=== PATIENT | male | born 1975 | race Two or more races ===

== ENCOUNTER 2017-04-22 15:32 | Emergency (ER) | payer OTHER ==
[~2017-04-22] VITALS: Ht 167.6 cm; Wt 89.8 kg
[2017-04-22] MEDS ORDERED: NKM (15:57)
[2017-04-22] MEDS ORDERED: Acetaminophen 500mg (ES) tab ORAL ONE (16:15)
--- NOTE | 2017-04-22 16:20 | Emergency Room Report ---
History of Present Illness General Chief Complaint: Head, Face, Neck Trauma Source: Patient Present Illness HPI 41-year-old male presents to the emergency department complaining of 7/10 pain, tenderness, swelling and open wound to side of his nose, left eye and right side of his forehead. Patient states he was at work when a large metal tool fell and hit him in the face. Patient denies pain with movements of the left eye he denies visual changes, loss of vision, nosebleed, loss of consciousness. he denies taking blood thinning medications . Patient reports some nausea that is starting to resolve. Denies vomiting . Patient states he has had a tetanus within the last 5 years. Denies numbness tingling or loss of sensation or gross motor movements of the extremities, incontinence of bowel or bladder. Denies CP, Palpitations, AMS, dizziness, Changes in Vision, Sensation, paresthesias, or a sudden severe headache. Allergies: Coded Allergies: No Known Allergies (Unverified , 04/22/17) Patient History Past Medical History: see triage record Past Surgical History: none Pertinent Family History: none Immunizations: UTD Reviewed Nursing Documentation: PMH: Agreed, PSxH: Agreed Nursing Documentation-PMH Past Medical History: No Stated History Review of Systems All Other Systems: negative except mentioned in HPI Physical Exam Vital Signs Date Time Temp Pulse Resp B/P (MAP) Pulse Ox O2 Delivery O2 Flow Rate FiO2 04/22/17 15:52 98.1 70 17 123/76 98 Room Air Sp02 EP Interpretation: reviewed, normal General Appearance: no apparent distress, alert, GCS 15, non-toxic Head: normocephalic, other - echymosis and erythema to the right side of the forehead, the lower cecily-orbital area of the left eye, and the nasal bridge. 0.3cm avulsion laceration noted to the nasal bridge on the left side, not bleeding at this time. Eyes: bilateral eye normal inspection, bilateral eye PERRL, bilateral eye EOMI ENT: hearing grossly normal, normal voice, TMs + canals normal, other - no evidence of nosebleed or septal hematoma superficial abrasion to the left lower lip, not bleeding, no bruising. Neck: full range of motion, no bony tend, supple/symm/no masses Respiratory: lungs clear, normal breath sounds, speaking full sentences Cardiovascular #1: regular rate, rhythm Musculoskeletal: back normal, gait/station normal, normal range of motion, tender - TTP to the right side of the forehead, the nasal bridge and the left cheekbone Neurologic: alert, oriented x3, responsive, motor strength/tone normal, sensory intact, cerebellar normal, normal gait, speech normal Skin: no rash, warm/dry, well hydrated, other - echymosis and erythema to the right side of the forehead, the lower cecily-orbital area of the left eye, and the nasal bridge. 0.3cm avulsion laceration noted to the nasal bridge on the left side, not bleeding at this time. Medical Decision Making PA Attestation Dr. Matos is my supervising Physician whom patient management has been discussed with. Diagnostic Impression: Primary Impression: Facial contusion Qualified Codes: S00.83XA - Contusion of other part of head, initial encounter Additional Impression: Laceration of nose Qualified Codes: S01.21XA - Laceration without foreign body of nose, initial encounter ER Course 41-year-old male presents to the emergency department complaining of 7/10 pain, tenderness, swelling and open wound to side of his nose, left eye and right side of his forehead. Patient states he was at work when a large metal tool fell and hit him in the face. Patient denies pain with movements of the left eye he denies visual changes, loss of vision, nosebleed, loss of consciousness. he denies taking blood thinning medications . Patient reports some nausea that is starting to resolve. Denies vomiting . Patient states he has had a tetanus within the last 5 years. Denies numbness tingling or loss of sensation or gross motor movements of the extremities, incontinence of bowel or bladder. Denies CP, Palpitations, AMS, dizziness, Changes in Vision, Sensation, paresthesias, or a sudden severe headache. Ddx considered but are not limited to Fracture, dislocation, contusion, concussion Sprain/Strain/Spasm, hematoma, entrapment, laceration, abrasion just to name a few Vital signs: are WNL, pt. is afebrile H&PE are most consistent with contusion and Avulsion laceration of the nasal bridge, no evidence of focal neurological deficit, no loss of consciousness. ORDERS: -CT Head NO CONTRAST: No evidence of acute fracture, hemorrhage, or intracranial process -Per official radiology report- Please see report for specific details. -CT FACIAL BONES NO CONTRAST: negative for acute fractures Per official radiology report- Please see report for specific details. ED INTERVENTIONS: -Tylenol PO - Wound is cleaned and irrigated, bacitracin and band-aid is applied by RN -D/w pt. conservative treatment, and to follow up with a primary care provider. pt given a list of primary care clinics for follow up. d/w pt. to return to the ED with worsening or new symptoms. DISCHARGE: At this time pt. is stable for d/c to home. Will provide printed patient care instructions, and any necessary prescriptions. Care plan and follow up instructions have been discussed with the patient prior to discharge. Last Vital Signs Date Time Temp Pulse Resp B/P (MAP) Pulse Ox O2 Delivery O2 Flow Rate FiO2 04/22/17 15:52 98.1 70 17 123/76 98 Room Air Disposition: HOME, SELF-CARE Condition: Stable Scripts Acetaminophen* (TYLENOL EXTRA STRENGTH*) 500 Mg Tablet 500 MG ORAL Q6H, #20 TAB 0 Refills Prov: Aleshia Garcia 04/22/17 Bacitracin/Polymyxin B Sulfate (BACITRACIN-POLYMYXIN OINTMENT) 28.35 Gm Oint...g. 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 Follow up with a Primary Care Provider in 3-5 days, even if your symptoms have resolved. --Please review list of primary care clinics, if you do not already have a primary care provider Return sooner to ED if new symptoms occur, or current symptoms become worse. - Please note that this Emergency Department Report was dictated using [employer] technology software, occasionally this can lead to erroneous entry secondary to interpretation by the dictation equipment. Aleshia Garcia Apr 22, 2017 16:20
[2017-04-22] MEDS ORDERED: Bacitracin Oint UD TOPIC ONE (16:30)
[2017-04-22 16:50] VITALS: BP 128/72
--- NOTE | 2017-04-22 16:58 | Diagnostic Imaging Report ---
Indication: PAIN head pain and facial trauma. History of work place injury Technique: Continuous helical CT scanning of the head was performed without intravenous contrast material. Axial and coronal 5 mm sections were generated. Radiation dose was minimized using automated exposure control Dose: Total Dose Length Product - DLP mGycm. Volume CT Dose Index - CTDIvol(s) 70.38 mGy. Comparison: None Findings: The ventricular system is normal in size and configuration. There is no shift of midline structures. No abnormal extra-axial fluid collections are noted. There is no evidence of intracerebral bleeding. A coarse calcification is seen in the posterior left thalamus. No other abnormal high or low density areas are noted within the brain. The orbits are unremarkable sinuses are clear. 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
--- NOTE | 2017-04-22 17:01 | Diagnostic Imaging Report ---
Indications: PAIN Technique: Spiral images obtained through the facial bones. No IV contrast utilized. Multiplanar reconstructions were generated.Total dose length product 558 mGycm. CTDIvol(s) 28mGy. Dose reduction achieved using automated exposure control Comparison: None Findings: The mandible is intact. The nasal bone is intact. The maxillofacial sinuses are clear with intact sinus tijerina. The orbital tijerina are intact. Zygomatic arches and pterygoid bones are intact. The dentition is intact. The nasal septum is midline. The orbits are unremarkable, with intact optic globes and unremarkable retroseptal orbits. The facial soft tissues are unremarkable. Intracranial structures are remarkable for left thalamic calcification, also described on concurrent head CT Impression: Negative The CT scanner at [facility] is accredited by the [employer] and the scans are performed using protocols designed to limit radiation exposure to as low as reasonably achievable to attain images of sufficient resolution adequate for diagnostic evaluation.
--- NOTE | 2017-04-22 17:01 | Diagnostic Imaging Report ---
Indications: PAIN Technique: Spiral images obtained through the facial bones. No IV contrast utilized. Multiplanar reconstructions were generated.Total dose length product 558 mGycm. CTDIvol(s) 28mGy. Dose reduction achieved using automated exposure control Comparison: None Findings: The mandible is intact. The nasal bone is intact. The maxillofacial sinuses are clear with intact sinus tijerina. The orbital tijerina are intact. Zygomatic arches and pterygoid bones are intact. The dentition is intact. The nasal septum is midline. The orbits are unremarkable, with intact optic globes and unremarkable retroseptal orbits. The facial soft tissues are unremarkable. Intracranial structures are remarkable for left thalamic calcification, also described on concurrent head CT Impression: Negative The CT scanner at [facility] is accredited by the [employer] and the scans are performed using protocols designed to limit radiation exposure to as low as reasonably achievable to attain images of sufficient resolution adequate for diagnostic evaluation.
[2017-04-22] MEDS ORDERED: TYLENOL EXTRA500 MG ORAL (17:46)
[2017-04-22] MEDS ORDERED: BACITRACIN-P28.35 GM TP (17:46)
[2017-04-22 17:55] VITALS: BP 139/76
== END 2017-04-22 17:57 | disposition home or self-care (01) ==
LOC: EMR 16:10
DX: S00.83XA Contusion of other part of head, initial encounter (principal); S00.12XA Contusion of left eyelid and periocular area, initial encounter; S00.33XA Contusion of nose, initial encounter; S01.21XA Laceration without foreign body of nose, initial encounter; W22.8XXA Striking against or struck by other objects, initial encounter; Y92.511 Restaurant or cafe as the place of occurrence of the external cause; Y99.0 Civilian activity done for income or pay
CPT/HCPCS: 70450; 70486; 99284